=== PATIENT | female | born 1940 | race African-American/Black ===

== ENCOUNTER 2024-03-20 19:46 | Emergency (ER) | payer SELFPAY ==
[2024-03-20 19:47] VITALS: BP 156/75
[2024-03-20 20:17] LABS: COVID-19 Antigen Negative (Negative)
--- NOTE | 2024-03-20 22:30 | ED.GENMED ---
History of Present Illness
General
Chief Complaint: Cold/Flu/URI Symptoms
Time Seen by Provider: 03/20/24 22:09
History of Present Illness
History of Present Illness:
Patient is a 84-year-old woman with history of hyperthyroidism presenting to the emergency department with flulike symptoms for the past day. Patient's son is at bedside provides all the history. He states that for the past day she has had a cough
body aches chills. She did seem more weak today. No nausea vomiting. No diarrhea. No chest pain. No shortness of breath. No leg swelling or hemoptysis. Her grandson was sick at home recently. She does not smoke. No history of lung problems.
Phy Exam
Physical Exam
Physical Exam:
GENERAL: in no acute distress
HEENT: normocephalic, extraocular movements intact, moist oral mucosa
NECK: normal inspection
RESPIRATORY: no respiratory distress, clear to auscultation bilaterally occasional crackle at the right lower
CARDIOVASCULAR: regular rate and rhythm
ABDOMEN/: soft, non-distended, non-tender to palpation, no rebound or guarding
EXTREMITIES: non-tender, no edema/swelling
NEUROLOGIC: awake and alert, moves all extremities
SKIN: warm
Course
Orders/Labs/Results
Orders:
Orders
03/20/24 19:55
COVID-19 Antigen Urgent
Source: Nasal Swab
Influenza A+B Rapid Molecular Urgent
DEMARIO Source: Nasal Swab
Specimen Description:
03/20/24 22:11
CR Chest - 2 Views Urgent
Comment:
Reason For Exam: cough
03/20/24 22:46
Basic Metabolic Panel Urgent
Comment: NO K
Complete Blood Count/With Diff Urgent
03/20/24 23:27
Azithromycin [Zithromax] 500 mg PO NOW STA
Cefuroxime Axetil [Ceftin] 500 mg PO NOW STA
Abnormal Lab Results
03/20/24
22:46
WBC 4.4 L 10^3/uL
(4.8-10.8)
Hct 36.8 L %
(37.0-47.0)
MPV 10.5 H fL
(7.4-10.4)
BUN 21 H mg/dl
(7-17)
Glucose 112 H mg/dl
(70-99)
03/20/24 22:46
03/20/24 22:46
Vital Signs
Initial and Last Documented VS:
Initial Vital Signs
Temp Pulse Resp BP Pulse Ox
98.3 F 86 16 156/75 94
03/20/24 19:47 03/20/24 19:47 03/20/24 19:47 03/20/24 19:47 03/20/24 19:47
Last Documented Vital Signs
Temp Pulse Resp BP Pulse Ox
98.3 F 86 16 156/75 94
03/20/24 19:47 03/20/24 19:47 03/20/24 19:47 03/20/24 19:47 03/20/24 19:47
MDM/Problems Addressed
Differential Diagnosis Includes:
Patient is a 84-year-old woman presenting to the emergency department 1 day of cough congestion and bodyaches. Vitals are unremarkable and exam does show occasional crackle to the right lower base. Concern for viral infection versus pneumonia
versus electrolyte derangement. Will check blood work. Patient is flu positive. Chest x-ray per my interpretation with developing left lower lobe pneumonia. Will obtain ambulatory pulse ox.
*Critical Care Note
Total Time (30-74mins, 75-104mins- exclusive of procedures): Not Applicable
Update Note
Update Note:
Blood work is reassuring. Ambulatory pulse ox was normal. Will discharge patient at this time. Will start antibiotics in case it is developing pneumonia. Strict return precautions given. Will give first dose of antibiotics here.
ED Attending Note
-
Portions of this chart may have been created with voice recognition software.� Occasional wrong word or��sound alike� substitutions may have occurred due to the inherent limitations of voice recognition software.
Discharge Plan
Departure
Patient with high blood pressure during this ER visit?: No
Discharge Problem:
Influenza A, Pneumonia
Instructions: Flu in adults - ED discharge instructions
Prescriptions:
New
cefuroxime axetil 500 mg tablet
500 mg PO BID 5 Days Qty: 10 0RF
Rx Instructions:
start 2/6
azithromycin [Zithromax] 250 mg tablet
250 mg PO DAILY 4 Days Qty: 4 0RF
Rx Instructions:
start 2/6
Referrals:
NONE,* [Family Provider] -
Discharge Date and Time
Print Language: IVORIAN
[2024-03-20 22:57] LABS: % Basophils 0.7 % (0-2); % Immature Granulocytes 0.2 % (0-0.5); % Lymphocytes 38.1 % (20.5-51.1); % Monocytes 7.9 % (1.7-9.3); % Neutrophils 53.1 % (42.2-75.2); Absolute Lymphocytes 1.7 10^3/uL (1.2-3.4); Absolute Monocytes 0.4 10^3/uL (0.1-0.6); Absolute Neutrophils 2.3 10^3/uL (1.4-6.5); Hematocrit 36.8 % (37.0-47.0); Hemoglobin 12.2 g/dL (12.0-16.0); Mean Corp Hgb Conc. 33.2 g/dL (33.0-37.0); Mean Corpuscular Hgb 28.8 pg (27.0-31.0); Mean Corpuscular Volume 86.8 fL (81.0-99.0); Mean Platelet Volume 10.5 fL (7.4-10.4); Nucleated Red Blood Cells % 0 %; Platelet Count 206 10^3/uL (130-400); Red Blood Cell Count 4.24 10^6/uL (4.20-5.40); Red Cell Dist. Width 14.5 % (11.5-14.5); White Blood Cell Count 4.4 10^3/uL (4.8-10.8)
[2024-03-20 23:11] LABS: Blood Urea Nitrogen 21 mg/dl (7-17); Calcium 9.8 mg/dl (8.4-10.2); Carbon Dioxide 24 mmol/L (22-30); Chloride 103 mmol/L (98-107); Glucose 112 mg/dl (70-99); Sodium 135 mmol/L (135-145); eGFR 55.55
[2024-03-20] MEDS: ZITHROMAX 500 MG PO (23:55)
[2024-03-21 00:04] VITALS: BMI 27.8
[2024-03-21] MEDS: CEFTIN 500 MG PO (00:13)
== END 2024-03-21 00:19 | disposition home or self-care (01) ==
LOC: EMR 19:46
PROVIDERS: Emergency Medicine; EMERGENCY PHYSICIAN Student in an Organized Health Care Education/Training Program
DX: J10.00 Influenza due to other identified influenza virus with unspecified type of pneumonia (principal); E05.90 Thyrotoxicosis, unspecified without thyrotoxic crisis or storm
CPT/HCPCS: 99283; 71046; 80048; 85025; 87502; 87811